=== PATIENT | male | born 1940 | race Caucasian/White ===

== ENCOUNTER 2019-04-19 17:45 | Inpatient (IN) | payer MEDICARE, MEDICAID ==
[~2019-04-19] VITALS: Ht 167.6 cm; Wt 67.0 kg
[2019-04-19 19:21] LABS: Basophils # (auto) 0 uL; Basophils % (auto) 0.6 % (0.0-2.0); Eosinophils # (auto) 0.1 uL; Eosinophils % (auto) 0.9 % (0.0-7.0); Hematocrit 42.2 % (41.0-53.0); Hemoglobin 14.3 g/dL (13.5-17.5); Lymphocytes # (auto) 2.1 uL; Lymphocytes % (auto) 30.5 % (10.0-50.0); Mean Corpuscular Hemoglobin 30.8 pg (28.0-32.0); Mean Corpuscular Hgb Conc. 33.9 g/dL (32.0-36.0); Mean Corpuscular Volume 90.8 fL (80.0-100.0); Monocytes # (auto) 0.6 uL; Monocytes % (auto) 9.1 % (0.0-12.0); Neutrophils # (auto) 4.1 uL; Neutrophils % (auto) 58.9 % (37.0-80.0); Platelet Count (auto) 255 10^3/uL (140-450); Red Blood Cells 4.65 10^6/uL (4.5-5.90); Red Cell Distribution Width 14.8 % (11.8-14.3)
[2019-04-19] MEDS ORDERED: SODIUM CHLORIDE 0.9% 500 ML IVB ONE (19:23)
[2019-04-19 19:30] LABS: Albumin 4.4 g/dL (3.4-5.0); BUN/Creatinine Ratio 14.1; Calcium 9.5 mg/dL (8.5-10.1); Potassium 4.2 mmol/L (3.5-5.1)
[2019-04-19] MEDS ORDERED: LORazepam 2MG/ML-1ML VIAL IV ONE (19:30)
[2019-04-19 19:33] LABS: Bilirubin, Total 0.8 mg/dL (0.2-1.0); Total Protein 8.8 g/dL (6.4-8.2)
[2019-04-19 19:44] LABS: Amylase 95 U/L (25-115); Lipase 204 U/L (73-393)
[2019-04-19] MEDS ORDERED: ONDANSETRON HCL 4 MG/2 ML VIAL IV ONE (21:00)
[2019-04-19] MEDS ORDERED: MORPHINE SULFATE 4 MG/ML SYR/VIAL IV ONE (21:00)
[2019-04-19 21:15] LABS: INR 1.01 (0.9-1.15); Partial Thromboplastin Time 28.6 sec (23.64-32.05)
[2019-04-19] MEDS ORDERED: ALLO100T PO (21:16)
[2019-04-19] MEDS ORDERED: OMEP20TA PO (21:16)
[2019-04-19] MEDS ORDERED: ATOR10TA52 PO (21:16)
[2019-04-19] MEDS ORDERED: GAB100C PO (21:16)
[2019-04-19] MEDS ORDERED: FUR20T PO (21:16)
[2019-04-19] MEDS ORDERED: CARV3.1240 PO (21:16)
[2019-04-19] MEDS: SODIUM CHLORIDE 0.9% 1,000 ML IV SCH (21:38)
[2019-04-19 22:00] VITALS: BP 158/92
[2019-04-19] MEDS ORDERED: hydrALAZINE HCL 20 MG/ML VL IV PRN (22:45)
[2019-04-19] MEDS ORDERED: PNEUMOCOCCAL VACC POLYS 25 MCG/0.5 ML VIAL IM ONE (23:00)
--- NOTE | 2019-04-19 23:15 | NUR ---
Nasogastric tube insertion Patient educated on need for NG tube. All questions addressed. NGT inserted per MD order. Placement verified by auscultation.
[2019-04-19] MEDS ORDERED: CYA100I PO (23:53)
--- NOTE | 2019-04-20 00:01 | NUR ---
HOSPITALIST PAGED NO ORDER FOR NGT SUCTION
[2019-04-20] MEDS: MORPHINE SULFATE 4 MG/ML SYR/VIAL IV PRN ×3 (00:35→17:04)
--- NOTE | 2019-04-20 00:37 | NUR ---
HOSPITALIST RETURNS PAGE SPOKE TO HOSPITALIST Elaina RENTERIA, NEW ORDERS RECEIVED FOR NGT TO LIS. ORDERS READ BACK AND VERIFIED.
--- NOTE | 2019-04-20 03:20 | NUR ---
ADVANCED NG TUBE FROM 55CM TO 60CM. PER CXR RESULT -RECOMMEND ADVANCEMENT. Addendum: 04/20/19 at 0338 by Dorothy William RN PLACEMENT VERIFIED BY ASPIRATION OF GASTRIC CONTENTS AND AUSCULTATION. GREEN/BROWN FLUID NOTED IN NG TUBING. NGT CONNECTED TO LIS. PATIENT TOLERATED WELL.
--- NOTE | 2019-04-20 04:40 | NUR ---
NG TUBE DISLODGED UPON ENTERING PATIENT ROOM PATIENTS NG TUBE SEEN AT 45CM LEVEL. SUCTIONED STOPPED. NG TUBE ADVANCE BACK TO 60CM CHULA. PATIENT TOLERATED WELL. NG TUBE PLACEMENT VERIFIED BY AUSCULTATION. SUCTION RESUMED AT LIS.
[2019-04-20 06:44] LABS: Basophils # (auto) 0 uL; Basophils % (auto) 0.7 % (0.0-2.0); Eosinophils # (auto) 0.1 uL; Eosinophils % (auto) 1.4 % (0.0-7.0); Hemoglobin 13.6 g/dL (13.5-17.5); Lymphocytes # (auto) 1.7 uL; Lymphocytes % (auto) 25.8 % (10.0-50.0); Mean Corpuscular Hemoglobin 30.9 pg (28.0-32.0); Mean Corpuscular Volume 90.8 fL (80.0-100.0); Monocytes # (auto) 0.6 uL; Monocytes % (auto) 9.6 % (0.0-12.0); Neutrophils # (auto) 4.1 uL; Neutrophils % (auto) 62.5 % (37.0-80.0); Platelet Count (auto) 215 10^3/uL (140-450); Red Blood Cells 4.41 10^6/uL (4.5-5.90); Red Cell Distribution Width 14.9 % (11.8-14.3); White Blood Cell 6.5 10^3/uL (4.4-10.8)
--- NOTE | 2019-04-20 06:45 | NUR ---
NG TUBE OUTPUT TOTAL = 50ML LIGHT YELLOW TO RUST COLORED LIQUID DRAINAGE WITH PARTICLES. PATIENT TOLERATING WELL, DENIES PAIN. PATIENT REPORTS A RELIEF OF PRESSURE IN ABDOMEN.
--- NOTE | 2019-04-20 06:57 | NUR ---
AMBULATION PT AMBULATED TO BATHROOM WITH STEADY GAIT TO PROVIDE URINE SAMPLE AND ATTEMPT A BOWEL MOVEMENT. NGT CLAMPED AT THIS TIME.
[2019-04-20 07:06] LABS: Albumin 3.9 g/dL (3.4-5.0); BUN/Creatinine Ratio 13.9; Calcium 8.9 mg/dL (8.5-10.1)
[2019-04-20 07:09] LABS: Bilirubin, Total 0.7 mg/dL (0.2-1.0); Total Protein 7.7 g/dL (6.4-8.2)
--- NOTE | 2019-04-20 07:24 | NUR ---
URINE SAMPLE SENT TO LAB
[2019-04-20 07:56] LABS: Urine Bacteria NONE SEEN /hpf (None Seen); Urine Blood Negative /uL (Negative); Urine Mucus FEW (None Seen); Urine Specific Gravity 1.018 (1.001-1.035); Urine WBC <1 /hpf (0 - 3)
[2019-04-20 08:52] VITALS: BP 149/80
[2019-04-20] MEDS ORDERED: GASTROGRAFIN 120 ML SOL ONE (09:53)
[2019-04-20] MEDS ORDERED: PNEUMOCOCCAL VACC POLYS 25 MCG/0.5 ML VIAL IM ONE (10:00)
[2019-04-20] MEDS: PANTOPRAZOLE 40 MG/10 ML VIAL INJ IV SCH (10:00)
[2019-04-20] MEDS: SODIUM CHLORIDE 0.9% 1,000 ML IV SCH (10:20)
--- NOTE | 2019-04-20 10:20 | NUR ---
EVY VALVE APPLIED TO NGT. NGT TO NOTCH 58, PATENT DRAINAGE IN SUCTION COLLECTING CHAMBER, PT DENIES PAIN AT MOMENT. 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 FOR SMALL BOWEL SERIES. TRANSPORTED VIA WHEELCHAIR. NO S/S OF DISTRESS.
--- NOTE | 2019-04-20 10:45 | NUR ---
DR. HOOKER WAS UPDATED ON PT'S STATUS. PER PT TO HAVE SURGICAL INTERVENTION ON 04/21/19; PT WILL NEED CARDIO CLEARANCE AND ECHO PRIOR TO SURGERY.
[2019-04-20 12:59] VITALS: BP 166/86
[2019-04-20 17:23] VITALS: BP 163/94
[2019-04-20 18:45] VITALS: BP 151/73
--- NOTE | 2019-04-20 18:58 | NUR ---
PT AWAKE, ALERT, ORIENTEDx4 COOPERATIVE OF CARE. NGT TO RIGHT NARES IN PLACE TO LIS, 50ML BROWN OUTPUT DURING SHIFT. REPORTS MILD ABD DISCOMFORT AT MOMENT. CALL LIGHT WITHIN REACH. FAMILY AT BEDSIDE.
--- NOTE | 2019-04-20 20:01 | NUR ---
HOSPITALIST PAGED PATIENT WITH INCREASED ANXIETY BECAUSE OF NG TUBE AND PENDING SURGERY TOMORROW. REQUEST FOR PRN ANXIETY MEDICATION.
--- NOTE | 2019-04-20 20:54 | NUR ---
HOSPITALIST RETURNS CALL SPOKE TO HOSPITALIST ROMEO. NEW ORDER RECEIVED FOR ATIVAN 0.5MG IV X1, ORDER READ BACK AND VERIFIED.
[2019-04-20] MEDS ORDERED: LORazepam 2MG/ML-1ML VIAL IV ONE (21:00)
[2019-04-20 22:00] VITALS: BP 152/72
--- NOTE | 2019-04-20 22:00 | NUR ---
TOTAL LINEN CHANGE PROVIDED FOR PATIENT PATIENT INCONTINENT OF URINE IN BED. PATIENT'S NG TUBE CLAMPED AND PATIENT AMBULATED BATHROOM TO CLEAN UP, NEW GOWN PROVIDED. TOTAL LINEN CHANGE PROVIDED. PATIENT RETURNED TO BED WITHOUT INCIDENT. RECONNECTED NG TUBE TO LIS AND NG TUBE GIPSON CHANGED. NG TUBE REMAINS AT 60CM CHULA. BED ALARM PLACED ON AND CALL LIGHT WITHIN PATIENT'S REACH. INSTRUCTED PATIENT TO CALL FOR ASSIST NEEDED.
--- NOTE | 2019-04-21 01:31 | NUR ---
INCONTINENT OF STOOL PATIENT INCONTINENT OF STOOL IN BED. MOD AMOUNT OF LIQUID BROWN STOOL NOTED IN BED. PARTIAL LINEN CHANGE PROVIDED. PATIENT'S NG TUBE CLAMPED AND PATIENT AMBULATED BATHROOM TO CLEAN UP. PARTIAL LINEN CHANGE PROVIDED. PATIENT RETURNED TO BED WITHOUT INCIDENT. RECONNECTED NG TUBE TO LIS. NG TUBE REMAINS AT 60CM CHULA. BED ALARM PLACED ON AND CALL LIGHT WITHIN PATIENT'S REACH. INSTRUCTED PATIENT TO CALL FOR ASSIST NEEDED.
--- NOTE | 2019-04-21 04:03 | NUR ---
INCONTINENT OF STOOL PATIENT INCONTINENT OF STOOL IN BED. MOD AMOUNT OF LIQUID BROWN STOOL NOTED IN BED. PARTIAL LINEN CHANGE PROVIDED. PATIENT'S NG TUBE CLAMPED AND PATIENT AMBULATED BATHROOM TO CLEAN UP. PARTIAL LINEN CHANGE PROVIDED. FRESH GOWN PROVIDED. PATIENT RETURNED TO BED WITHOUT INCIDENT. RECONNECTED NG TUBE TO LIS. NG TUBE REMAINS AT 60CM CHULA, AUSCULTATED TO CONFIRM PLACEMENT. BED ALARM PLACED ON AND CALL LIGHT WITHIN PATIENT'S REACH. INSTRUCTED PATIENT TO CALL FOR ASSIST NEEDED.
[2019-04-21] MEDS: SODIUM CHLORIDE 0.9% 1,000 ML IV SCH ×2 (04:33→18:40)
[2019-04-21 05:00] VITALS: BP 141/59
--- NOTE | 2019-04-21 06:42 | NUR ---
NG TUBE OUTPUT TOTAL = 100ML LIGHT YELLOW TO BROWN COLORED LIQUID DRAINAGE WITH PARTICLES. PATIENT TOLERATING WELL, DENIES PAIN.
[2019-04-21 07:06] LABS: Basophils # (auto) 0.1 uL; Basophils % (auto) 0.8 % (0.0-2.0); Eosinophils # (auto) 0 uL; Eosinophils % (auto) 0.4 % (0.0-7.0); Hematocrit 40.2 % (41.0-53.0); Hemoglobin 13.5 g/dL (13.5-17.5); Lymphocytes # (auto) 1.5 uL; Lymphocytes % (auto) 19.6 % (10.0-50.0); Mean Corpuscular Hemoglobin 30.8 pg (28.0-32.0); Mean Corpuscular Hgb Conc. 33.5 g/dL (32.0-36.0); Monocytes # (auto) 0.6 uL; Monocytes % (auto) 8.6 % (0.0-12.0); Neutrophils # (auto) 5.3 uL; Neutrophils % (auto) 70.6 % (37.0-80.0); Platelet Count (auto) 219 10^3/uL (140-450); Red Blood Cells 4.37 10^6/uL (4.5-5.90); Red Cell Distribution Width 15.1 % (11.8-14.3); White Blood Cell 7.5 10^3/uL (4.4-10.8)
[2019-04-21 07:28] LABS: Calcium 9.3 mg/dL (8.5-10.1); Potassium 4.1 mmol/L (3.5-5.1)
[2019-04-21 07:30] LABS: BUN/Creatinine Ratio 15.4
--- NOTE | 2019-04-21 07:40 | NUR ---
Opening Shift Note Assumed care of patient, awake and alert ambulating in room. No S/S of distress/SOB or pain. Instructed on POC and to call for assist PRN, will continue to monitor for changes Q1hr and PRN. NGT in place on intermittent suction. NPO status maintained for procedure this am.
[2019-04-21 08:34] VITALS: BP 161/80
[2019-04-21] MEDS: PANTOPRAZOLE 40 MG/10 ML VIAL INJ IV SCH (09:12)
--- NOTE | 2019-04-21 09:35 | NUR ---
Pre-Op Patient taken to pre-op for procedure. Family member in attendance.
[2019-04-21] MEDS ORDERED: LIDOCAINE 1% HCL (LOCAL ANESTH.) INJ 20ML MDV ONE (10:31)
[2019-04-21] MEDS ORDERED: BUPIVACAINE W/ EPINEPH 0.25% INJ 50ML MDV ONE (10:32)
[2019-04-21] MEDS ORDERED: BUPIVACAINE 0.25% INJ 50ML VIAL ONE (10:32)
[2019-04-21] MEDS ORDERED: ceFAZolin 1GM/50ML 50 ML IV ONE (10:42)
[2019-04-21] MEDS ORDERED: SUCCINYLCHOLINE CHLORIDE 20 MG/ML 10ML VIAL IV ONE (10:50)
[2019-04-21] MEDS ORDERED: DexAMETHasone SOD PHOS 10MG/1ML VIAL INJ IV ONE (10:50)
[2019-04-21] MEDS ORDERED: GLYCOPYRROLATE 0.2 MG/ML 1ML VIAL IV ONE (10:50)
[2019-04-21] MEDS ORDERED: PROPOFOL 10 MG/ML 20 ML IV ONE (10:50)
[2019-04-21] MEDS ORDERED: ePHEDrine SULFATE 50 MG/ML AMP IV ONE (10:50)
[2019-04-21] MEDS ORDERED: hydrALAZINE HCL 20 MG/ML VL IV PRN (11:30)
[2019-04-21] MEDS ORDERED: ONDANSETRON HCL 4 MG/2 ML VIAL IV PRN (11:30)
[2019-04-21] MEDS ORDERED: METOCLOPRAMIDE HCL 5MG/ml INJ 2ml VIAL IV PRN (11:30)
[2019-04-21] MEDS ORDERED: LABETALOL HCL 5 MG/ML 4ML SYRINGE IV PRN (11:30)
[2019-04-21] MEDS ORDERED: ACCU-CHEK COMFORT CURVE STRIP VI ONE (11:30)
[2019-04-21] MEDS ORDERED: HYDROmorphone HCL 2 MG/ML VL IV PRN (11:30)
[2019-04-21] MEDS ORDERED: fentaNYL CITRATE 100 MCG/2 ML VL IV PRN (11:30)
[2019-04-21] MEDS ORDERED: HYDROmorphone HCL 2 MG/ML VL ONE (11:47)
[2019-04-21] MEDS ORDERED: fentaNYL CITRATE 100 MCG/2 ML VL ONE (11:47)
[2019-04-21] MEDS ORDERED: LABETALOL HCL 5 MG/ML ML 20ML VIAL IV PRN (12:00)
[2019-04-21] MEDS ORDERED: MIDAZOLAM HCL 1MG/1ML-2 ML VIAL ONE (12:16)
--- NOTE | 2019-04-21 14:10 | NUR ---
Patient on unit Patient returned to unit from PACU awake, alert and oriented. No complaint of pain. 2L oxygen via nasal canula, side rails up for safety and call light placed within reach, and bed alarm on. Patient encouraged to call for assistance.
[2019-04-21] MEDS: ONDANSETRON HCL 4 MG/2 ML VIAL IV PRN ×2 (15:09→22:22)
[2019-04-21] MEDS: MORPHINE SULFATE 4 MG/ML SYR/VIAL IV PRN ×2 (15:10→22:22)
[2019-04-21 16:28] VITALS: BP 114/68
--- NOTE | 2019-04-21 16:30 | NUR ---
Patient ambulating on unit. Family members in attendance.
--- NOTE | 2019-04-21 19:25 | NUR ---
OPENING NOTE Received report from day shift RN. Patient is A&O X's 4 with no s/s of distress noted. Patient reports no pain. Educated patient on POC and to use call light when in need of assistance. Patient verbalized understanding. Incision site to right inguinal area is C/D/I; sutures are intact. Bed is in lowest/locked position with side rails up X's 2 and call light is within reach of patient. Will continue to monitor for changes and round hourly/PRN.
[2019-04-21 22:00] VITALS: BP 135/75
--- NOTE | 2019-04-22 00:19 | NUR ---
PATIENT AMBULATED Patient ambulated to bathroom at this time with standby assistance. Patient showed steady gait. Patient back into bed safely. Will continue care
[2019-04-22] MEDS: SODIUM CHLORIDE 0.9% 1,000 ML IV SCH ×2 (02:20→15:41)
[2019-04-22 05:00] VITALS: BP 118/63
[2019-04-22] MEDS: MORPHINE SULFATE 4 MG/ML SYR/VIAL IV PRN ×3 (05:37→19:54)
[2019-04-22] MEDS: ONDANSETRON HCL 4 MG/2 ML VIAL IV PRN (05:38)
[2019-04-22 05:40] LABS: Basophils # (auto) 0 uL; Basophils % (auto) 0.1 % (0.0-2.0); Eosinophils # (auto) 0 uL; Hematocrit 35.8 % (41.0-53.0); Lymphocytes # (auto) 0.6 uL; Lymphocytes % (auto) 5.8 % (10.0-50.0); Mean Corpuscular Hemoglobin 30.6 pg (28.0-32.0); Mean Corpuscular Hgb Conc. 33.5 g/dL (32.0-36.0); Mean Corpuscular Volume 91.3 fL (80.0-100.0); Monocytes # (auto) 0.8 uL; Monocytes % (auto) 7.2 % (0.0-12.0); Neutrophils # (auto) 9.6 uL; Neutrophils % (auto) 86.9 % (37.0-80.0); Platelet Count (auto) 202 10^3/uL (140-450); Red Blood Cells 3.92 10^6/uL (4.5-5.90); Red Cell Distribution Width 15.2 % (11.8-14.3)
[2019-04-22 06:29] LABS: Albumin 3.5 g/dL (3.4-5.0); BUN/Creatinine Ratio 17.1; Bilirubin, Total 0.7 mg/dL (0.2-1.0); Calcium 8.6 mg/dL (8.5-10.1); Potassium 4.1 mmol/L (3.5-5.1); Total Protein 7.7 g/dL (6.4-8.2)
--- NOTE | 2019-04-22 08:00 | NUR ---
Opening Shift Note Assumed care of patient, awake and alert. No S/S of distress/SOB or pain. Instructed on POC and to call for assist PRN, will continue to monitor for changes Q1hr and PRN.
[2019-04-22 09:00] VITALS: BP_SYST 114; BP_SYST 138; BP_DIAS 61; BP_DIAS 91
[2019-04-22] MEDS: PANTOPRAZOLE 40 MG/10 ML VIAL INJ IV SCH (09:57)
[2019-04-22 13:00] VITALS: BP 122/77
--- NOTE | 2019-04-22 14:02 | NUR ---
Nutrition Assessment Notes please see attached link for complete assessment Est. Needs BW 67 [id number] kcal (25-30 kcal/kgBW), 53-67 gms pro (0.8-1.0 gms/kgBW r/t elev RFT CKD). Will continue to monitor pertinent labs and reassess nutrient need prn Addendum: 04/22/19 at [address] Amended: Links added.
--- NOTE | 2019-04-22 16:30 | NUR ---
SNF/CM TRIED TO GET [facility] OF FIRE MANAGEMENT OFFICER REGARDING PATIENT BEING DISCHARGED TO SNF. FAMILY PREFERS [facility]. HAVE NOT HEARD ANYTHING REGARDING PLACEMENT AT THIS TIME. LEFT A MESSAGE FOR [facility] IN REGARDS TO SNF AVAILABILITY.
--- NOTE | 2019-04-22 17:16 | NUR ---
SNF PLACEMENT/CM TRIED CALLING [facility] AGAIN BUT GOT VOICEMAIL. NO NOTE REGARDING PLACEMENT AT SNF. WILL INQUIRE AGAIN TOMORROW.
[2019-04-22 17:23] VITALS: BP 137/77
--- NOTE | 2019-04-22 17:41 | NUR ---
assessment Patient is a 78 year old male who is alert and oriented. Prior to admission patient lived home with his family and functioned independently. Patient informed me his PCP is Dr Moulton. Patient has no DME. Patient has no advanced directive or POA. Patient was admitted for hernia surgery. Patient is weak and has a ss consult for SNF placement. Patient has agreed to SNF and wants [facility]. [facility] will satisfy order. Patient verbalized understanding and agreed to discharge plan to [facility]. Addendum: 04/22/19 at 1746 by Arabella CARBONE Amended: Links added.
--- NOTE | 2019-04-22 18:01 | NUR ---
[facility] SPOKE WITH ELIZABETH. PATIENT WILL BE GOING TO [facility], ROOM 6B, ON A GURNEY (PER PATIENT REQUEST). HE WILL BE PICKED UP AROUND 2100 (SHE WILL CALL BACK WITH AN EXACT TIME). WILL NOTIFY PATIENT.
--- NOTE | 2019-04-22 18:13 | NUR ---
D/C planning Per consult for SNF placement. Per Arabella pt requested [facility] ph: ( [phone]) Fax: ) faxed medical records. Per Bartolo from [facility] ph: ) pt has been accepted to room 6b accepting MD Dr. Keenan. Contacted Rich from [facility] Ph: ) pt will be picked up at 21:00 via gurney. Gordo Schmidt. Addendum: 04/22/19 at 1817 by DIVINA RIOS Amended: Links added.
--- NOTE | 2019-04-22 19:00 | NUR ---
OPENING NOTE Received report from day shift RN. Patient is A&O X's 4 with no s/s of respiratory distress noted. His daughter is at bedside. Educated patient and daughter on POC and the plan for transfer tonight. They both verbalized understanding. Educated patient to use call light when in need of assistance. Patient verbalized understanding. Patient c/o 9/10 pain that feels like a warm feeling where the incision was done. Incision is C/D/I. Will medicate as ordered. Bed is in lowest/locked position with side rails up X's 2 and call light is within reach of patient. Will continue to monitor for changes and round hourly/PRN.
--- NOTE | 2019-04-22 19:39 | NUR ---
PAGED HOSPITALIST regarding medications for transfer
--- NOTE | 2019-04-22 20:12 | NUR ---
PAGED HOSPITALIST Hospitalist was paged again regarding medications for transfer
--- NOTE | 2019-04-22 21:10 | NUR ---
PATIENT TRANSFERRED OFF UNIT TO FACILITY [facility] transport picked up patient at this time. Patient is A&O X's 4 with no s/s of respiratory distress. Last VS RR: 16 T: 98.1 BP: 142/71 HR: 66 O2: 93% on room air. Patient was safely transferred to [facility]. All patient belongings were taken with patient and with patient's family member. Paperwork given to Transport employeeJoey. 20G IV to right forearm was removed using clean technique. Gauze was applied to the site. Patient tolerated it well. No trauma to site.
--- NOTE | 2019-04-22 22:18 | NUR ---
HOSPITALIST Orders for transfer to facility: discontinue inpatient medications and OKAY to continue home medications listed on med rec
--- NOTE | 2019-04-22 22:18 | NUR ---
HOSPITALIST RETURNED CALL GUILLERMINA Carrero gave orders for medications regarding transfer. Will implement as ordered.
== END 2019-04-22 21:10 | DRG 350 ==
LOC: ER 17:51 → OVERFLOW 17:52 → WEST WING 21:55
PROVIDERS: ADMIT Nurse Practitioner; ATTEND Internal Medicine
PROC: 0D9670Z Drainage of Stomach with Drainage Device, Via Natural or Artificial Opening (ICD-10-PCS; 2019-04-19)
PROC: 0YQ50ZZ Repair Right Inguinal Region, Open Approach (ICD-10-PCS; principal; 2019-04-21 10:50)
DX: K40.30 Unilateral inguinal hernia, with obstruction, without gangrene, not specified as recurrent (principal); N17.0 Acute kidney failure with tubular necrosis; I13.0 Hypertensive heart and chronic kidney disease with heart failure and stage 1 through stage 4 chronic kidney disease, or unspecified chronic kidney disease; I50.42 Chronic combined systolic (congestive) and diastolic (congestive) heart failure; J98.11 Atelectasis; M10.9 Gout, unspecified; N18.9 Chronic kidney disease, unspecified; F41.9 Anxiety disorder, unspecified; I70.0 Atherosclerosis of aorta; E78.00 Pure hypercholesterolemia, unspecified; I08.0 Rheumatic disorders of both mitral and aortic valves; I25.10 Atherosclerotic heart disease of native coronary artery without angina pectoris; N40.0 Benign prostatic hyperplasia without lower urinary tract symptoms; Z86.73 Personal history of transient ischemic attack (TIA), and cerebral infarction without residual deficits; Z90.49 Acquired absence of other specified parts of digestive tract; Z98.49 Cataract extraction status, unspecified eye; Z87.440 Personal history of urinary (tract) infections; Z80.1 Family history of malignant neoplasm of trachea, bronchus and lung; Z79.899 Other long term (current) drug therapy; Z28.21 Immunization not carried out because of patient refusal
CPT/HCPCS: 36415; 71045; 74176; 74250; 80048; 80053; 81001; 82150; 83690; 85025; 85610; 85730; 93306; 94761; 96361; 96374; 96375; C9113; G0378; J0330; J0690; J1100; J2001; J2250; J2405; J2704; J3490

== ENCOUNTER 2020-03-22 08:03 | Emergency (ER) | payer MEDICARE, MEDICAID ==
[~2020-03-22] VITALS: Ht 180.3 cm; Wt 71.7 kg
[~2020-03-22 08:03] MED LIST: ALLO100T PO; ATOR10TA52 PO; CARV3.1240 PO; CYA100I PO; FUR20T PO; GAB100C PO; OMEP20TA PO
[2020-03-22 08:12] VITALS: BP 169/78
== END 2020-03-22 09:30 | disposition home or self-care (01) ==
LOC: ER 08:03
DX: M16.11 Unilateral primary osteoarthritis, right hip (principal); N18.9 Chronic kidney disease, unspecified; I50.9 Heart failure, unspecified; Z86.73 Personal history of transient ischemic attack (TIA), and cerebral infarction without residual deficits; Z79.899 Other long term (current) drug therapy
CPT/HCPCS: 73502

== ENCOUNTER 2023-06-18 15:16 | Inpatient (IN) | payer MEDICARE, MEDICAID ==
[~2023-06-18] VITALS: Ht 162.6 cm; Wt 70.6 kg
[2023-06-18] MEDS ORDERED: ACETAMINOPHEN 325 MG TAB PO ONE (15:30)
[2023-06-18 15:40] LABS: Basophils # (auto) 0.1 10 ^3/uL (0-0.2); Basophils % (auto) 0.5 % (0.0-2.0); Eosinophils # (auto) 0.1 10 ^3/uL (0-0.8); Eosinophils % (auto) 0.5 % (0.0-7.0); Monocytes # (auto) 1.3 10 ^3/uL (0-1.3); Monocytes % (auto) 9.2 % (0.0-12.0); Nucleated Red Blood Cells % 0.1 %
[2023-06-18 15:42] LABS: Hematocrit 18.8 % (41.0-53.0); Lymphocytes % (auto) 14.1 % (10.0-50.0); Mean Corpuscular Hemoglobin 30.6 pg (28.0-32.0); Mean Corpuscular Hgb Conc. 32.3 g/dL (32.0-36.0); Mean Corpuscular Volume 94.9 fL (80.0-100.0); Neutrophils # (auto) 10.9 10 ^3/uL (1.6-8.6); Neutrophils % (auto) 75.7 % (37.0-80.0); Red Blood Cells 1.99 10^6/uL (4.5-5.90); Red Cell Distribution Width 16.6 % (11.8-14.3); White Blood Cell 14.3 10^3/uL (4.4-10.8)
[2023-06-18] MEDS ORDERED: PANTOPRAZOLE 40 MG/10 ML VIAL INJ IV ONE (15:45)
[2023-06-18] MEDS ORDERED: SODIUM CHLORIDE 0.9% 1,000 ML IV ONE (15:45)
[2023-06-18 15:54] LABS: Hemoglobin 6.1 g/dL (13.5-17.5)
[2023-06-18 15:59] LABS: Alanine Aminotransferase 20 U/L (7-40); Alkaline Phosphatase 111 U/L (46-116); Anion Gap 11 (5-15); Aspartate Aminotransferase 18 U/L (13-40); BUN/Creatinine Ratio 29.3 (10.0-20.0); Blood Urea Nitrogen 61 mg/dL (9-23); Calcium 8.4 mg/dL (8.5-10.1); Carbon Dioxide 20 mmol/L (20-30); Chloride 107 mmol/L (98-107); Glucose 118 mg/dL (74-106); Potassium 4.3 mmol/L (3.5-5.1); Sodium 138 mmol/L (136-145)
[2023-06-18 16:00] LABS: Albumin 3.6 g/dL (3.2-4.8); Bilirubin, Total 0.8 mg/dL (0.2-1.0); Total Protein 7.3 g/dL (5.7-8.2)
[2023-06-18] MEDS ORDERED: SODIUM CHLORIDE 0.9% 500 ML IV ONE (16:15)
[2023-06-18] MEDS ORDERED: cefTRIAXone 1GM/50ML D5W 50 ML IV ONE (16:30)
[2023-06-18] MEDS ORDERED: MORPHINE SULFATE INJ 2 MG/ml SYRG IV PRN (16:45)
[2023-06-18] MEDS ORDERED: ONDANSETRON HCL 4 MG/2 ML VIAL IV PRN (16:45)
[2023-06-18] MEDS ORDERED: NITROGLYCERIN 0.4 MG SL TAB SL PRN (16:45)
[2023-06-18 17:35] LABS: % Iron Saturation 10.3 % (20-55)
[2023-06-18 17:42] LABS: INR 1.12 (0.9-1.15); Prothrombin Time 11.7 sec (9.3-11.8)
[2023-06-18 17:59] VITALS: PULSE 87; RESP 17; O2SAT 98
[2023-06-18] MEDS: SODIUM CHLORIDE 0.9% 1,000 ML IV SCH (18:15)
[2023-06-18 20:10] VITALS: PULSE 81; RESP 14; O2SAT 98
[2023-06-18 21:38] VITALS: BP 97/39; PULSE 84; RESP 16; TEMP 98.1
[2023-06-18 21:45] VITALS: BP 100/37; PULSE 76; RESP 18; TEMP 98.5
[2023-06-18 22:00] VITALS: BP 101/33; PULSE 72; RESP 22; TEMP 98
[2023-06-18] MEDS: PANTOPRAZOLE 40 MG/10 ML VIAL INJ IV SCH (22:29)
[2023-06-18 22:58] VITALS: BP 93/36; PULSE 71; RESP 18; TEMP 98.4
[2023-06-18 23:26] LABS: Urine Bacteria FEW /hpf (None Seen); Urine Blood Negative /uL (Negative); Urine Clarity Clear (Clear); Urine Color Yellow (Yellow); Urine Protein, UAD TRACE (Negative); Urine Specific Gravity 1.013 (1.001-1.035); Urine Urobilinogen Normal (Negative); Urine WBC 1 /hpf (0 - 3)
[2023-06-19] MEDS: SODIUM CHLORIDE 0.9% 1,000 ML IV SCH ×4 (01:00→16:46)
[2023-06-19] MEDS ORDERED: FUROSEMIDE 20 MG/2 ML VIAL ONE (10:42)
[2023-06-19 11:05] LABS: Basophils # (auto) 0.1 10 ^3/uL (0-0.2); Basophils % (auto) 0.6 % (0.0-2.0); Eosinophils # (auto) 0.1 10 ^3/uL (0-0.8); Eosinophils % (auto) 0.6 % (0.0-7.0); Hematocrit 20.3 % (41.0-53.0); Lymphocytes # (auto) 1.7 10 ^3/uL (0.4-5.4); Lymphocytes % (auto) 14.5 % (10.0-50.0); Mean Corpuscular Hemoglobin 30.1 pg (28.0-32.0); Mean Corpuscular Hgb Conc. 32.7 g/dL (32.0-36.0); Monocytes % (auto) 8.2 % (0.0-12.0); Neutrophils # (auto) 9.1 10 ^3/uL (1.6-8.6); Neutrophils % (auto) 76.1 % (37.0-80.0); Red Blood Cells 2.21 10^6/uL (4.5-5.90); Red Cell Distribution Width 17.8 % (11.8-14.3)
[2023-06-19] MEDS ORDERED: FUROSEMIDE 20 MG/2 ML VIAL IV ONE (11:15)
[2023-06-19 11:20] LABS: Alanine Aminotransferase 14 U/L (7-40); Alkaline Phosphatase 94 U/L (46-116); Anion Gap 10 (5-15); Aspartate Aminotransferase 14 U/L (13-40); BUN/Creatinine Ratio 23.9 (10.0-20.0); Bilirubin, Total 0.6 mg/dL (0.2-1.0); Calcium 7.7 mg/dL (8.5-10.1); Carbon Dioxide 18 mmol/L (20-30); Chloride 113 mmol/L (98-107); Glucose 95 mg/dL (74-106); Potassium 4.1 mmol/L (3.5-5.1); Sodium 141 mmol/L (136-145); Total Protein 6.1 g/dL (5.7-8.2)
[2023-06-19 11:51] LABS: Blood Urea Nitrogen 45 mg/dL (9-23)
[2023-06-19 13:47] LABS: Hemoglobin 6.6 g/dL (13.5-17.5)
[2023-06-19] MEDS: PANTOPRAZOLE 40 MG/10 ML VIAL INJ IV SCH ×2 (16:09→21:33)
[2023-06-19 16:47] VITALS: BP 111/56; PULSE 85; RESP 20; TEMP 98.7
[2023-06-19 17:00] VITALS: BP 111/56; PULSE 85; RESP 16; TEMP 98.7; O2SAT 97
[2023-06-19 20:00] VITALS: PULSE 74; RESP 22; O2SAT 97
[2023-06-19 22:00] VITALS: BP 95/49; PULSE 73; RESP 20; TEMP 98.6; O2SAT 99
[2023-06-20] VITALS (24 sets, daily range): BP systolic 87–123; BP diastolic 39–68; PULSE 68–92; RESP 13–32; TEMP 98–98.3; O2SAT 81–100
[2023-06-20] MEDS: MORPHINE SULFATE INJ 2 MG/ml SYRG IV PRN ×2 (00:14→04:16)
[2023-06-20] MEDS: SODIUM CHLORIDE 0.9% 1,000 ML IV SCH ×3 (01:00→17:18)
[2023-06-20 06:29] LABS: Calcium 8.2 mg/dL (8.5-10.1); Chloride 114 mmol/L (98-107); Potassium 4.1 mmol/L (3.5-5.1); Sodium 143 mmol/L (136-145)
[2023-06-20 06:30] LABS: Anion Gap 7 (5-15); Carbon Dioxide 22 mmol/L (20-30)
[2023-06-20 06:35] LABS: Blood Urea Nitrogen 53 mg/dL (9-23); Glucose 102 mg/dL (74-106)
[2023-06-20 07:47] LABS: Basophils # (auto) 0 10 ^3/uL (0-0.2); Basophils % (auto) 0.4 % (0.0-2.0); Eosinophils # (auto) 0.1 10 ^3/uL (0-0.8); Eosinophils % (auto) 1.4 % (0.0-7.0); Hematocrit 24.2 % (41.0-53.0); Hemoglobin 7.7 g/dL (13.5-17.5); Lymphocytes # (auto) 2.2 10 ^3/uL (0.4-5.4); Lymphocytes % (auto) 21.1 % (10.0-50.0); Mean Corpuscular Hemoglobin 30.6 pg (28.0-32.0); Mean Corpuscular Hgb Conc. 32.1 g/dL (32.0-36.0); Mean Corpuscular Volume 95.4 fL (80.0-100.0); Monocytes # (auto) 1.3 10 ^3/uL (0-1.3); Monocytes % (auto) 12.5 % (0.0-12.0); Neutrophils # (auto) 6.7 10 ^3/uL (1.6-8.6); Neutrophils % (auto) 64.6 % (37.0-80.0); Nucleated Red Blood Cells % 0.1 %; Red Blood Cells 2.53 10^6/uL (4.5-5.90); Red Cell Distribution Width 18.6 % (11.8-14.3); White Blood Cell 10.4 10^3/uL (4.4-10.8)
[2023-06-20] MEDS: PANTOPRAZOLE 40 MG/10 ML VIAL INJ IV SCH ×2 (09:13→21:09)
[2023-06-20] MEDS ORDERED: MIDAZOLAM HCL 5 MG/ML-1ML VIAL ONE (12:55)
[2023-06-20] MEDS ORDERED: LIDOCAINE VISCOUS 2% 15ML UD ONE (12:55)
[2023-06-20] MEDS ORDERED: SODIUM CHLORIDE LOCK 0 ML ONE (12:55)
[2023-06-20] MEDS ORDERED: fentaNYL CITRATE 100 MCG/2 ML VL ONE (12:55)
[2023-06-20] MEDS ORDERED: diphenhdrAMINE HCL 50 MG/1 ML VL ONE (12:55)
[2023-06-20] MEDS ORDERED: LIDOCAINE 2% (LOCAL ANESTH.) PF 5ml SDV ONE (15:58)
[2023-06-20] MEDS ORDERED: EPINEPHrine HCL 1 MG/10 ML SYRG ONE (15:58)
[2023-06-20] MEDS ORDERED: SODIUM CHLORIDE LOCK 10 ML ONE (15:58)
[2023-06-20] MEDS ORDERED: PROPOFOL 10 MG/ML 20 ML IV ONE (15:58)
[2023-06-20] MEDS ORDERED: PHENYLEPHRINE HCL 10 MG/ML VL ONE (15:58)
[2023-06-20] MEDS ORDERED: CLINIMIX PER PHARMACY 0 ML IV SCH (18:00)
[2023-06-20] MEDS ORDERED: KETOROLAC TROMETH 60MG/2ML VIAL IV PRN (19:15)
[2023-06-20] MEDS ORDERED: AMINO ACID INFUSION IN D10W 1,000 ML IV NR (20:00)
[2023-06-20] MEDS ORDERED: DEXTROSE (50%) 50ML SYRG IV SCH (20:00)
[2023-06-21] VITALS (28 sets, daily range): BP systolic 95–142; BP diastolic 33–68; PULSE 70–93; RESP 16–27; TEMP 97.7–98.6; O2SAT 92–100
[2023-06-21] MEDS: ACCU-CHEK COMFORT CURVE STRIP VI SCH ×4 (01:09→17:04)
[2023-06-21] MEDS: SODIUM CHLORIDE 0.9% 1,000 ML IV SCH (02:11)
[2023-06-21 05:36] LABS: Basophils # (auto) 0.1 10 ^3/uL (0-0.2); Eosinophils # (auto) 0.1 10 ^3/uL (0-0.8); Neutrophils % (auto) 63.7 % (37.0-80.0)
[2023-06-21 05:38] LABS: Basophils % (auto) 0.8 % (0.0-2.0); Eosinophils % (auto) 0.8 % (0.0-7.0); Hematocrit 17.9 % (41.0-53.0); Lymphocytes # (auto) 1.7 10 ^3/uL (0.4-5.4); Mean Corpuscular Hemoglobin 31.1 pg (28.0-32.0); Mean Corpuscular Hgb Conc. 32.5 g/dL (32.0-36.0); Mean Corpuscular Volume 95.8 fL (80.0-100.0); Monocytes % (auto) 12.7 % (0.0-12.0); Neutrophils # (auto) 4.9 10 ^3/uL (1.6-8.6); Nucleated Red Blood Cells % 0.1 %; Red Blood Cells 1.87 10^6/uL (4.5-5.90); Red Cell Distribution Width 18.1 % (11.8-14.3); White Blood Cell 7.7 10^3/uL (4.4-10.8)
[2023-06-21 05:48] LABS: Hemoglobin 5.8 g/dL (13.5-17.5)
[2023-06-21 05:55] LABS: Albumin 2.9 g/dL (3.2-4.8); Alkaline Phosphatase 95 U/L (46-116); Calcium 7.9 mg/dL (8.7-10.4); Carbon Dioxide 20 mmol/L (20-30); Chloride 117 mmol/L (98-107); Glucose 117 mg/dL (74-106); Magnesium 1.9 mg/dL (1.6-2.6); Potassium 3.9 mmol/L (3.5-5.1)
[2023-06-21 05:56] LABS: Anion Gap 8 (5-15); Aspartate Aminotransferase 15 U/L (13-40); BUN/Creatinine Ratio 30.9 (10.0-20.0); Bilirubin, Total 0.5 mg/dL (0.2-1.0); Blood Urea Nitrogen 46 mg/dL (9-23); Phosphorus 2.6 mg/dL (2.4-5.1); Sodium 145 mmol/L (136-145); Total Protein 5.9 g/dL (5.7-8.2)
[2023-06-21 05:58] LABS: Alanine Aminotransferase < 9 U/L (7-40)
[2023-06-21] MEDS: InsuLIN REG 1unit/0.01ml Soln (100units/ml) SC SCH ×4 (06:00→17:24)
[2023-06-21 06:10] LABS: Hypochromia Slight; Platelet Estimate Adequate
[2023-06-21] MEDS: PANTOPRAZOLE 40 MG/10 ML VIAL INJ IV SCH (07:38)
[2023-06-21] MEDS: ACETAMINOPHEN 325 MG TAB PO PRN (09:17)
[2023-06-21] MEDS ORDERED: FUROSEMIDE 20 MG/2 ML VIAL IV ONE (09:30)
[2023-06-21] MEDS: D5W 5% 1,000 ML IV SCH (10:58)
[2023-06-21] MEDS: PANTOPRAZOLE 40mg/50ML NS AE 50 ML IV SCH ×3 (10:58→18:39)
[2023-06-21] MEDS: SUCRALFATE 1 GM/10 ML ORAL SUSP PO SCH ×3 (10:59→21:34)
[2023-06-21 18:12] LABS: Hemoglobin 9.1 g/dL (13.5-17.5)
[2023-06-22] VITALS (13 sets, daily range): BP systolic 114–151; BP diastolic 44–71; PULSE 66–99; RESP 15–27; TEMP 97.4–98.7; O2SAT 94–99
[2023-06-22] MEDS: ACCU-CHEK COMFORT CURVE STRIP VI SCH ×4 (00:20→18:08)
[2023-06-22] MEDS: PANTOPRAZOLE 40mg/50ML NS AE 50 ML IV SCH ×4 (02:41→18:08)
[2023-06-22 04:58] LABS: Basophils # (auto) 0 10 ^3/uL (0-0.2); Basophils % (auto) 0.5 % (0.0-2.0); Eosinophils # (auto) 0.1 10 ^3/uL (0-0.8); Eosinophils % (auto) 1.6 % (0.0-7.0); Hematocrit 26.7 % (41.0-53.0); Lymphocytes # (auto) 1.8 10 ^3/uL (0.4-5.4); Lymphocytes % (auto) 21.8 % (10.0-50.0); Mean Corpuscular Hemoglobin 30.9 pg (28.0-32.0); Mean Corpuscular Hgb Conc. 33.6 g/dL (32.0-36.0); Mean Corpuscular Volume 91.9 fL (80.0-100.0); Monocytes # (auto) 1.1 10 ^3/uL (0-1.3); Monocytes % (auto) 13.2 % (0.0-12.0); Neutrophils # (auto) 5.2 10 ^3/uL (1.6-8.6); Neutrophils % (auto) 62.9 % (37.0-80.0); Nucleated Red Blood Cells % 0.1 %; Red Blood Cells 2.91 10^6/uL (4.5-5.90); Red Cell Distribution Width 15.9 % (11.8-14.3); White Blood Cell 8.3 10^3/uL (4.4-10.8)
[2023-06-22 05:20] LABS: Alkaline Phosphatase 106 U/L (46-116); Anion Gap 6 (5-15); Aspartate Aminotransferase 17 U/L (13-40); BUN/Creatinine Ratio 25.2 (10.0-20.0); Carbon Dioxide 21 mmol/L (20-30); Chloride 111 mmol/L (98-107); Glucose 100 mg/dL (74-106); Potassium 3.6 mmol/L (3.5-5.1); Sodium 138 mmol/L (136-145)
[2023-06-22 05:21] LABS: Total Protein 6.2 g/dL (5.7-8.2)
[2023-06-22 05:24] LABS: Alanine Aminotransferase < 9 U/L (7-40); Blood Urea Nitrogen 35 mg/dL (9-23)
[2023-06-22] MEDS: D5W 5% 1,000 ML IV SCH (05:52)
[2023-06-22] MEDS: InsuLIN REG 1unit/0.01ml Soln (100units/ml) SC SCH ×4 (05:59→18:00)
[2023-06-22] MEDS: SUCRALFATE 1 GM/10 ML ORAL SUSP PO SCH ×4 (08:02→21:34)
[2023-06-22] MEDS ORDERED: AMINO ACID INFUSION IN D10W 1,000 ML IV NR (09:15)
[2023-06-22 10:49] LABS: Phosphorus 2.2 mg/dL (2.4-5.1)
[2023-06-22 10:52] LABS: Magnesium 1.8 mg/dL (1.6-2.6)
[2023-06-22] MEDS: ACETAMINOPHEN 325 MG TAB PO PRN ×2 (10:55→21:35)
[2023-06-22 14:30] LABS: Basophils # (auto) 0.1 10 ^3/uL (0-0.2); Basophils % (auto) 0.6 % (0.0-2.0); Eosinophils # (auto) 0.1 10 ^3/uL (0-0.8); Eosinophils % (auto) 0.8 % (0.0-7.0); Hematocrit 28.3 % (41.0-53.0); Hemoglobin 9.7 g/dL (13.5-17.5); Lymphocytes # (auto) 1.4 10 ^3/uL (0.4-5.4); Lymphocytes % (auto) 15.9 % (10.0-50.0); Mean Corpuscular Hemoglobin 30.8 pg (28.0-32.0); Mean Corpuscular Hgb Conc. 34.2 g/dL (32.0-36.0); Mean Corpuscular Volume 90.2 fL (80.0-100.0); Neutrophils # (auto) 6.4 10 ^3/uL (1.6-8.6); Neutrophils % (auto) 71.7 % (37.0-80.0); Nucleated Red Blood Cells % 0.2 %; Red Blood Cells 3.14 10^6/uL (4.5-5.90); Red Cell Distribution Width 15.3 % (11.8-14.3)
[2023-06-22 14:47] LABS: Albumin 3.2 g/dL (3.2-4.8); Alkaline Phosphatase 119 U/L (46-116); Anion Gap 8 (5-15); BUN/Creatinine Ratio 21.9 (10.0-20.0); Bilirubin, Total 0.9 mg/dL (0.2-1.0); Blood Urea Nitrogen 30 mg/dL (9-23); Calcium 8.1 mg/dL (8.7-10.4); Carbon Dioxide 20 mmol/L (20-30); Chloride 108 mmol/L (98-107); Glucose 109 mg/dL (74-106); Potassium 3.5 mmol/L (3.5-5.1); Sodium 136 mmol/L (136-145); Total Protein 6.6 g/dL (5.7-8.2)
[2023-06-22 14:48] LABS: Alanine Aminotransferase < 9 U/L (7-40)
[2023-06-22 14:51] LABS: Aspartate Aminotransferase 15 U/L (13-40)
[2023-06-22] MEDS ORDERED: POTASSIUM PHOSP 22MEQ(15MMOLE) in NS 100 ML IV ONE (16:15)
[2023-06-23] MEDS: PANTOPRAZOLE 40mg/50ML NS AE 50 ML IV SCH ×6 (00:46→20:36)
[2023-06-23] MEDS: ACCU-CHEK COMFORT CURVE STRIP VI SCH ×4 (01:07→17:47)
[2023-06-23] MEDS: AMINO ACID INFUSION IN D10W 1,000 ML IV NR ×2 (02:10→20:37)
[2023-06-23] MEDS: D5W 5% 1,000 ML IV SCH ×2 (02:56→22:50)
[2023-06-23 05:00] VITALS: BP 99/50; PULSE 86; RESP 17; TEMP 98.3; O2SAT 98
[2023-06-23 05:54] LABS: Hematocrit 28.5 % (41.0-53.0); Hemoglobin 9.8 g/dL (13.5-17.5)
[2023-06-23 05:57] LABS: Calcium 8.1 mg/dL (8.7-10.4); Potassium 3.5 mmol/L (3.5-5.1)
[2023-06-23] MEDS: InsuLIN REG 1unit/0.01ml Soln (100units/ml) SC SCH ×4 (06:00→17:47)
[2023-06-23 06:03] LABS: BUN/Creatinine Ratio 23.4 (10.0-20.0); Magnesium 1.6 mg/dL (1.6-2.6)
[2023-06-23 06:04] LABS: Albumin 3.2 g/dL (3.2-4.8)
[2023-06-23 06:05] LABS: Phosphorus 2.2 mg/dL (2.4-5.1)
[2023-06-23] MEDS: SUCRALFATE 1 GM/10 ML ORAL SUSP PO SCH ×4 (06:52→22:50)
[2023-06-23 08:00] VITALS: PULSE 80
[2023-06-23 09:00] VITALS: BP 140/74; PULSE 91; RESP 18; TEMP 98.5; O2SAT 97
[2023-06-23] MEDS ORDERED: MAGNESIUM SULFATE 1GM/100ML 100 ML IV ONE (10:00)
[2023-06-23] MEDS ORDERED: POTASSIUM PHOSPHATE 44 MEQ in D5W 5% 250 ML IV ONE (11:00)
[2023-06-23 11:13] LABS: Magnesium 1.7 mg/dL (1.6-2.6)
[2023-06-23 11:15] LABS: Albumin 3.4 g/dL (3.2-4.8)
[2023-06-23 17:00] VITALS: BP 124/66; PULSE 88; RESP 16; TEMP 98; O2SAT 92
[2023-06-23 20:00] VITALS: PULSE 100; PULSE 82; RESP 18; O2SAT 97
[2023-06-23 22:00] VITALS: BP 122/66; PULSE 90; RESP 18; TEMP 98.2; O2SAT 97
[2023-06-24] MEDS: PANTOPRAZOLE 40mg/50ML NS AE 50 ML IV SCH ×5 (02:38→21:00)
[2023-06-24 05:00] VITALS: BP 125/67; PULSE 85; RESP 19; TEMP 97.7; O2SAT 98
[2023-06-24] MEDS: InsuLIN REG 1unit/0.01ml Soln (100units/ml) SC SCH ×4 (06:00→17:36)
[2023-06-24] MEDS: ACCU-CHEK COMFORT CURVE STRIP VI SCH ×5 (06:18→23:23)
[2023-06-24] MEDS: SUCRALFATE 1 GM/10 ML ORAL SUSP PO SCH ×4 (06:23→23:22)
[2023-06-24 06:44] LABS: Potassium 3.2 mmol/L (3.5-5.1)
[2023-06-24 06:50] LABS: BUN/Creatinine Ratio 15.6 (10.0-20.0); Hematocrit 28.2 % (41.0-53.0); Hemoglobin 9.2 g/dL (13.5-17.5)
[2023-06-24] MEDS ORDERED: NAP500T PO (06:51)
[2023-06-24] MEDS ORDERED: MECL1TAB31 PO (06:51)
[2023-06-24 06:52] LABS: Phosphorus 1.8 mg/dL (2.4-5.1)
[2023-06-24 08:00] VITALS: PULSE 93
[2023-06-24] MEDS ORDERED: POTASSIUM PHOSPHATE 44 MEQ in D5W 5% 250 ML IV ONE (12:00)
[2023-06-24 17:00] VITALS: BP 118/62; PULSE 95; RESP 18; TEMP 98.7; O2SAT 93
[2023-06-24] MEDS: D5W 5% 1,000 ML IV SCH (18:41)
[2023-06-24 20:00] VITALS: PULSE 98; RESP 18; O2SAT 97
[2023-06-24] MEDS ORDERED: SODIUM PHOSPHATES 20 MEQ in SODIUM CHL 0.9% 100 ML IV ONE (20:00)
[2023-06-24 22:00] VITALS: BP 99/48; PULSE 81; RESP 17; TEMP 99.7; O2SAT 97
[2023-06-24 23:17] VITALS: TEMP 98.2
[2023-06-25] MEDS: PANTOPRAZOLE 40mg/50ML NS AE 50 ML IV SCH ×3 (03:22→12:00)
[2023-06-25 05:00] VITALS: BP 100/52; PULSE 71; RESP 16; TEMP 98; O2SAT 97
[2023-06-25] MEDS: InsuLIN REG 1unit/0.01ml Soln (100units/ml) SC SCH ×2 (06:00)
[2023-06-25] MEDS: ACCU-CHEK COMFORT CURVE STRIP VI SCH (06:00)
[2023-06-25] MEDS: SUCRALFATE 1 GM/10 ML ORAL SUSP PO SCH ×3 (06:42→17:25)
[2023-06-25 07:10] LABS: Potassium 3.1 mmol/L (3.5-5.1)
[2023-06-25 07:12] LABS: Calcium 8.1 mg/dL (8.5-10.1)
[2023-06-25 07:15] LABS: Hematocrit 27.1 % (41.0-53.0); Hemoglobin 9.2 g/dL (13.5-17.5)
[2023-06-25 07:17] LABS: BUN/Creatinine Ratio 15.8 (10.0-20.0)
[2023-06-25 07:19] LABS: Phosphorus 3.1 mg/dL (2.4-5.1)
[2023-06-25 08:00] VITALS: BP 101/55; PULSE 82; RESP 20; TEMP 98.2; O2SAT 96
[2023-06-25 08:04] LABS: Magnesium 1.8 mg/dL (1.6-2.6)
[2023-06-25 08:05] VITALS: BP 101/55; PULSE 82; PULSE 83; RESP 20; TEMP 98.2; O2SAT 96
[2023-06-25] MEDS ORDERED: SUCR1TAB22 OR (11:33)
[2023-06-25] MEDS ORDERED: PANT40TA2 PO (11:33)
[2023-06-25] MEDS ORDERED: POTASSIUM EFFERVESENT TAB 25 MEQ PO ONE (11:45)
[2023-06-25 12:00] VITALS: BP 96/49; PULSE 62; RESP 20; TEMP 97.5; O2SAT 93
[2023-06-25 15:42] VITALS: BP 113/42
[2023-06-25 16:00] VITALS: BP 117/68; PULSE 81; RESP 20; TEMP 97.7; O2SAT 96
== END 2023-06-25 18:30 | disposition home health service (06) | DRG 377 ==
LOC: ER 15:16 → TELE 16:46 → TELE-WESTW 06-19 16:47 → DOU IN ICU 06-20 18:03 → TELE-CENTR 06-22 13:42
PROVIDERS: ADMIT Nurse Practitioner; ATTEND Nurse Practitioner
PROC: 30233N1 Transfusion of Nonautologous Red Blood Cells into Peripheral Vein, Percutaneous Approach (ICD-10-PCS; 2023-06-18)
PROC: 0DB68ZX Excision of Stomach, Via Natural or Artificial Opening Endoscopic, Diagnostic (ICD-10-PCS; 2023-06-20)
PROC: 0W3P8ZZ Control Bleeding in Gastrointestinal Tract, Via Natural or Artificial Opening Endoscopic (ICD-10-PCS; 2023-06-20)
PROC: 0DB98ZX Excision of Duodenum, Via Natural or Artificial Opening Endoscopic, Diagnostic (ICD-10-PCS; principal; 2023-06-20 15:47)
PROC: 05HB33Z Insertion of Infusion Device into Right Basilic Vein, Percutaneous Approach (ICD-10-PCS; 2023-06-21)
PROC: B54MZZA Ultrasonography of Right Upper Extremity Veins, Guidance (ICD-10-PCS; 2023-06-21)
DX: K26.4 Chronic or unspecified duodenal ulcer with hemorrhage (principal); J96.01 Acute respiratory failure with hypoxia; I13.0 Hypertensive heart and chronic kidney disease with heart failure and stage 1 through stage 4 chronic kidney disease, or unspecified chronic kidney disease; J98.11 Atelectasis; N17.9 Acute kidney failure, unspecified; M10.9 Gout, unspecified; E78.5 Hyperlipidemia, unspecified; K21.9 Gastro-esophageal reflux disease without esophagitis; N18.9 Chronic kidney disease, unspecified; D64.9 Anemia, unspecified; I50.9 Heart failure, unspecified; K44.9 Diaphragmatic hernia without obstruction or gangrene; K29.70 Gastritis, unspecified, without bleeding; Z80.1 Family history of malignant neoplasm of trachea, bronchus and lung; Z86.73 Personal history of transient ischemic attack (TIA), and cerebral infarction without residual deficits; Z80.3 Family history of malignant neoplasm of breast
CPT/HCPCS: 36415; 71045; 74176; 80048; 80053; 80069; 81001; 82040; 82962; 83540; 83550; 83605; 83690; 83735; 84100; 84484; 85014; 85018; 85025; 85610; 86850; 86900; 86901; 86920; 87040; 87081; 93005; 93971; 96374; 97110; 97116; 97163; 97530; C9113; G0378; J0696; J2001; J2250; J2405; J2704; J7042; J7060

== ENCOUNTER 2024-10-12 09:41 | Emergency (ER) | payer MEDICARE, MEDICAID ==
[~2024-10-12] VITALS: Ht 162.6 cm; Wt 61.8 kg
[~2024-10-12 09:41] MED LIST changes: -FUR20T PO; +FURO20TA4 PO; +MECL12.586 PO; -OMEP20TA PO; +PANT40TA2 PO; +SUCR1TAB31 OR
[2024-10-12 11:18] VITALS: TEMP 98.2
[2024-10-12 11:19] VITALS: PULSE 67; RESP 15; O2SAT 94
--- NOTE | 2024-10-12 11:49 | ED.PDOC ---
History of Present Illness HPI Comments 84-year-old male came brought by paramedics from home because of generalized weakness cough for the past week. He did go to his primary care physician for which she was given Z-Clark without any help. He does take carvedilol Lasix for his congestive heart failure. Denies chest pain nausea vomiting. Denies any other symptoms. Chief Complaint: General Weakness Time Seen by MD: 09:54 Primary Care Provider: KENNY Reviewed Notes: Nurses Notes, Medications, Allergies Allergies: Coded Allergies: NO KNOWN ALLERGIES (Unverified , 04/19/19) Home Meds Active Scripts Pantoprazole Sodium Sesquihydr (Protonix) 40 Mg Tab, 40 MG PO BID for 30 Days, #60 TAB Prov:BALJEET BRAND TELEMETRY TECHNICIAN 06/25/23 Sucralfate (CARAFATE) 1 Gm Tab, 1 GM OR QIDACHS for 30 Days, #120 TAB Prov:BALJEET BRAND TELEMETRY TECHNICIAN 06/25/23 Reported Medications Meclizine Hcl (Meclizine Hcl) 12.5 Mg Tab, 12.5 MG PO BIDP PRN for DIZZINESS for 30 Days, MG 06/24/23 Vitamin B12 (Vitamin B-12) 1,000 Mcg/1 Ml Ij, 1000 MCG PO DAILY 04/19/19 Furosemide (Furosemide) 20 Mg Tab, 20 MG PO DAILY 04/19/19 Gabapentin (Gabapentin) 100 Mg Cap, 100 MG PO BID 04/19/19 Atorvastatin Calcium (ATORVASTATIN CALCIUM) 10 Mg Tab, 10 MG PO DAILY 04/19/19 Carvedilol (Carvedilol) 3.125 Mg Tab, 3.125 MG PO BID 04/19/19 Allopurinol (Allopurinol) 100 Mg Tab, 100 MG PO DAILY 04/19/19 Information Source: Patient, Emergency Med Personnel Mode of Arrival: EMS Severity: Moderate Timing: Days Duration: Since onset Past Medical History PAST MEDICAL HISTORY: CHF, CKF, CVA, Gout Surgical History: Appendectomy, Hernia Repair Family History Family History: Reviewed,noncontributory to illness Social History Smoker: Non-Smoker Alcohol: Denies ETOH Use Drugs: Denies Drug Use Lives In: Home Constitutional: reports: weakness; denies: chills, diaphoresis, fatigue, fever, malaise, sweats, others EENTM: denies: blurred vision, double vision, ear bleeding, ear discharge, ear drainage, ear pain, ear ringing, eye pain, eye redness, hearing loss, mouth pain, mouth swelling, nasal discharge, nose bleeding, nose congestion, nose pain, photophobia, tearing, throat pain, throat swelling, voice changes, others Respiratory: reports: cough; denies: hemoptysis, orthopnea, SOB at rest, shortness of breath, SOB with excertion, stridor, wheezing, others Cardiovascular: denies: chest pain, dizzy spells, diaphoresis, Dyspnea on exertion, edema, irregular heart beat, left arm pain, lightheadedness, palpitations, PND, syncope, others Gastrointestinal: denies: abdomen distended, abdominal pain, blood streaked bowels, constipated, diarrhea, dysphagia, difficulty swallowing, hematemesis, melena, nausea, poor appetite, poor fluid intake, rectal bleeding, rectal pain, vomiting, others Genitourinary: denies: burning, dysuria, flank pain, frequency, hematuria, incontinence, penile discharge, penile sore, pain, testicle pain, testicle swelling, urgency, others Neurological: denies: dizziness, fainting, headache, left sided numbness, left sided weakness, numbness, paresthesia, pre-existing deficit, right sided numbness, right sided weakness, seizure, speech problems, tingling, tremors, weakness, others Musculoskeletal: denies: back pain, gout, joint pain, joint swelling, muscle pain, muscle stiffness, neck pain, others Integumetry: denies: bruises, change in color, change in hair/nails, dryness, laceration, lesions, lumps, rash, wounds, others Allergic/Immunocompromised: denies: Difficulty Healing, Frequent Infections, Hives, Itching, others Hematologic/Lymphatic: denies: anemia, blood clots, easy bleeding, easy bruising, swollen glands, others Endocrine: denies: excessive hunger, excessive sweating, excessive thirst, excessive urination, flushing, intolerance to cold, intolerance to heat, unexplained weight gain, unexplained weight loss, others Psychiatric: denies: anxiety, bipolar disorder, depression, hopeless, panic d isorder, schizophrenia, sleepless, suicidal, others Physical Exam General Appearance: Moderate Distress HEENT: Normal ENT Inspection, Pharynx Normal, TMs Normal Neck: Full Range of Motion, Non-Tender, Normal, Normal Inspection Respiratory: Other (Coarse breath sounds) Cardiovascular: No Edema, No JVD, No Murmur, No Gallop, Normal Peripheral Pulses, Regular Rate/Rhythm Breast Exam: Deferred Gastrointestinal: No Organomegaly, Non Tender, No Pulsatile Mass, Normal Bowel Sounds, Soft Genitalia: Deferred Pelvic: Deferred Rectal: Deferred Extremities: No calf tenderness, Normal capillary refill, Normal inspection, Normal range of motion, Non-tender, No pedal edema Musculoskeletal : Apperance: Normal Neurologic: Alert, core maker II-XII nml as Tested, No Motor Deficits, Normal Affect, Normal Mood, No Sensory Deficits Cerebellar Function: NOT DONE Reflexes: NOT DONE Skin: Dry, Normal Color, Warm Peripheral Pulses: 3+ Radial (R), 3+ Radial (L) Lymphatic: No Adenopathy Was a procedure done? Was a procedure done?: No Differential Dx Considerations may include: Pneumonitis Electrolyte imbalance X-Ray, Labs, Meds, VS Vital Signs Date Time Temp Pulse Resp B/P (MAP) Pulse Ox O2 Delivery O2 Flow Rate FiO2 10/12/24 11:19 67 15 94 Room Air* 0 21 10/12/24 11:18 98.2 67 15 102/68 (79) 94 98.2 10/12/24 10:00 97.9 56 16 142/80 (100) 95 10/12/24 09:42 61 10/12/24 09:42 62 Patient alert. Complaining of cough generalized weakness. Vitals stable. Answering all questions. Pressure fluctuates. Establish intravenous access. Was given fluids. Possible pneumonitis. Was given steroid. Was given Rocephin. Reviewed his previous visit. Explained to the patient. Continue cardiac monitoring. Time of 1ST Reevaluation: 11:47 Reevaluation 1ST: Unchanged Patient Education/Counseling: Diagnosis, Treatment, Prognosis Family Education/Counseling: No Family Present Departure 1 Departure Time of Disposition: 11:48 Impression: Primary Impression: Acute diastolic heart failure Additional Impression: Pneumonitis Disposition: ADMITTED INPATIENT Admit to: Med Surg Condition: Guarded Critical Care Note Critical Care Time?: Yes (45 min-critical care time only) Stability Stability form required: No Heart Score Heart Score: Heart Score Response (Comments) Value History Slightly Suspicious 0 EKG Normal 0 Age >65 2 Risk Factors >3 or Hx ASHD 2 Troponin Normal limit 0 Total 4 SITA KEITH MD Oct 12, 2024 11:49
[2024-10-12] MEDS: SODIUM CHLORIDE 0.9% 1,000 ML IV ONE (12:11)
[2024-10-12] MEDS: methylPREDNISolone SOD SUCC 125 MG/2 ML VL IV ONE (12:11)
[2024-10-12] MEDS: cefTRIAXone 1GM/50ML D5W 50 ML IV ONE (12:11)
[2024-10-12 12:24] LABS: Hematocrit 35.7 % (41.0-53.0); Hemoglobin 11.9 g/dL (13.5-17.5); Mean Corpuscular Hemoglobin 31.3 pg (28.0-32.0); Mean Corpuscular Hgb Conc. 33.2 g/dL (32.0-36.0); Mean Corpuscular Volume 94.1 fL (80.0-100.0); Platelet Count (auto) 156 10^3/uL (140-450); Red Blood Cells 3.79 10^6/uL (4.5-5.90); Red Cell Distribution Width 14.7 % (11.8-14.3); White Blood Cell 3.5 10^3/uL (4.4-10.8)
[2024-10-12 12:29] LABS: Basophils % (manual) 0 (0.0-2.0); Blast Cells 0; Eosinophils % (manual) 0 (0-7); Metamyelocytes % 0; Myelocytes % 0; Promyelocytes % 0; Reactive Lymphocytes 0
[2024-10-12 12:48] LABS: Anion Gap 10 (5-15); Chloride 105 mmol/L (98-107); Potassium 4.5 mmol/L (3.5-5.1)
[2024-10-12 12:54] LABS: BUN/Creatinine Ratio 16.5 (10.0-20.0); Glucose 93 mg/dL (74-106)
[2024-10-12 13:04] LABS: Blood Urea Nitrogen 40 mg/dL (9-23); Carbon Dioxide 19 mmol/L (20-31); Sodium 134 mmol/L (136-145)
[2024-10-12 13:40] LABS: Band Neutrophils % (manual) 3; Lymphocytes % (manual) 48 (10.0-50.0); Monocytes % (manual) 6 (0-12); Platelet Estimate Adequate
[2024-10-12] MEDS: ALBUTEROL SULF 2.5 MG/0.5ML(0.5%) NEB SOLN NEB ONE (14:13)
--- NOTE | 2024-10-12 14:43 | ECG ---
[facility] Test Date: 2024-10-12 Test Time: 09:42:35 Pat Name: CAROL CULLEN Department: er Room: Gender: M Castables Worker: lora : 1940 Requested By: SITA KEITH Order Number: [id number] Reading MD: Shmuel Carter Measurements Intervals Warren Rate: 62 P: 31 CT: 194 QRS: -46 QRSD: 108 T: 43 QT: 409 QTc: 416 Interpretive Statements Sinus rhythm Atrial premature complex Incomplete RBBB and LAFB Abnormal R-wave progression, early transition Left ventricular hypertrophy Electronically Signed On 10-12-2024 17:52:17 PST by Shmuel Carter Please click the below link to view image of tracing.
[2024-10-12 14:50] LABS: COVID19 ANTIGEN SOFIA FIA NEGATIVE (NEGATIVE)
--- NOTE | 2024-10-12 14:51 | DVH ---
XY CHEST PORTABLE, HISTORY: sob COMPARISON: XY CHEST PORTABLE on DOS: 06/18/23 XY CHEST PORTABLE on DOS: 06/18/23 TECHNICAL DATA: 1 view of the chest was obtained. FINDINGS: Lines and tubes: None Cardiomediastinal silhouette: normal Pulmonary vasculature: normal Lung expansion: normal Lung airspace: Left basilar atelecatasis. Lung interstitium: normal Pleura: normal Pneumothorax: no Bones: Unremarkable Other: no IMPRESSION: Left basilar atelecatasis.
[2024-10-12 14:52] LABS: Rapid Influenza B Negative (Negative)
[2024-10-12 14:58] LABS: Rapid Influenza A Positive (Negative)
[2024-10-12 15:28] VITALS: BP 119/70; PULSE 69; RESP 15; O2SAT 95
== END 2024-10-12 15:41 | disposition home or self-care (01) ==
LOC: ER 09:41 → EDBD 09:41 → ER 15:41
DX: J16.8 Pneumonia due to other specified infectious organisms (principal); I13.0 Hypertensive heart and chronic kidney disease with heart failure and stage 1 through stage 4 chronic kidney disease, or unspecified chronic kidney disease; I50.31 Acute diastolic (congestive) heart failure; J98.4 Other disorders of lung; N18.9 Chronic kidney disease, unspecified; M10.9 Gout, unspecified; Z79.899 Other long term (current) drug therapy; Z86.73 Personal history of transient ischemic attack (TIA), and cerebral infarction without residual deficits; Z90.49 Acquired absence of other specified parts of digestive tract; Z98.890 Other specified postprocedural states; Z20.822 Contact with and (suspected) exposure to COVID-19
CPT/HCPCS: 36415; 71045; 80048; 84484; 85007; 85027; 87426; 87804; 93005; 94640; 96365; 96375; 99291; J0696; J2919; J7030